=== PATIENT | male | born 1960 | race Caucasian/White ===

== ENCOUNTER 2017-11-22 17:46 | Emergency (ER) | payer OTHER ==
[~2017-11-22] VITALS: Ht 182.9 cm; Wt 118.8 kg
[2017-11-22] MEDS ORDERED: PROAIR HFA8.5 GM INH (19:29)
[2017-11-22] MEDS ORDERED: MEDROLDOSEPACK PO (19:29)
[2017-11-22 19:45] VITALS: BP 141/82
--- NOTE | 2017-11-23 14:47 | EKG ---
[place] [address] ELECTROCARDIOGRAM REPORT Name: OSMARJL Albertina Room: [facility]#: [id number] Admission: 11/22/17 Attend Phys: Discharge: 11/22/17 Date of : 56 Report #: [id number] THIS REPORT FOR: //name// [facility] ED Test Date: 2017-11-22 Test Time: 18:39:43 Pat Name: JL PRASAD Department: Room: Gender: M Study Assistant: Jas ANNE : 1960 Requested By: Amanda Bryant Order Number: [id number] MD: Barber Valentine Measurements Intervals [place] Rate: 80 P: 14 [place]: 183 QRS: -12 QRSD: 101 T: 15 QT: 383 QTc: 442 Interpretive Statements Sinus rhythm Baseline wander in lead(s) V5,V6 No previous ECG available for comparison Electronically Signed On 11-23-2017 14:47:41 CDT by Barber Valentine [email or web address] <ELECTRONICALLY SIGNED> By: Barber Valentine MD, [facility] 11/23/17 1447 [id number] Barber Valentine MD, FAC /EPI
== END 2017-11-22 19:51 | disposition home or self-care (01) ==
LOC: M.ERS 17:46
DX: R09.1 Pleurisy (principal); J40 Bronchitis, not specified as acute or chronic; Z90.49 Acquired absence of other specified parts of digestive tract

== ENCOUNTER 2018-07-14 04:31 | Emergency (ER) | payer OTHER ==
[~2018-07-14] VITALS: Ht 185.4 cm; Wt 113.4 kg
[~2018-07-14 04:31] MED LIST: MEDROLDOSEPACK PO; PROAIR HFA8.5 GM INH
[2018-07-14 05:41] LABS: INFLUENZA B ANTIGEN None Detected (None Detect)
[2018-07-14] MEDS ORDERED: PROAIR HFA8.5 GM INH (05:45)
[2018-07-14] MEDS ORDERED: OSELB75 PO (05:45)
[2018-07-14] MEDS ORDERED: PREDNISONE50 MG PO (05:45)
[2018-07-14] MEDS ORDERED: TUSSIONEX PENN115 ML PO (05:48)
[2018-07-14 06:05] VITALS: BP 169/76
== END 2018-07-14 06:05 | disposition home or self-care (01) ==
LOC: M.ERS 04:31
PROVIDERS: Emergency Medicine
DX: J11.1 Influenza due to unidentified influenza virus with other respiratory manifestations (principal); J40 Bronchitis, not specified as acute or chronic; Z90.49 Acquired absence of other specified parts of digestive tract

== ENCOUNTER 2019-01-27 17:36 | Emergency (ER) | payer OTHER ==
[~2019-01-27] VITALS: Ht 182.9 cm; Wt 115.7 kg
[~2019-01-27 17:36] MED LIST changes: +OSELB75 PO; +PREDNISONE50 MG PO; +TUSSIONEX PENN115 ML PO
[2019-01-27 18:08] LABS: URINE BILIRUBIN NEGATIVE (Negative); URINE BLOOD TRACE (Negative); URINE CLARITY CLEAR; URINE COLOR YELLOW; URINE GLUCOSE-RANDOM 2+ (Negative); URINE KETONES TRACE (Negative); URINE LEUKOCYTES-REFLEX NEGATIVE (Negative); URINE NITRITE-REFLEX NEGATIVE (Negative); URINE PROTEIN 1+ (Negative); URINE SPECIFIC GRAVITY >= 1.030 (1.005-1.030); URINE UROBILINOGEN 0.2 E.U./dl (0.2-1.0)
[2019-01-27 19:03] LABS: ABSOLUTE BASOPHILS 0.1 thou/uL (0.0-0.2); ABSOLUTE EOSINOPHILS 0.3 thou/uL (0.0-0.7); ABSOLUTE LYMPHOCYTES 1.3 thou/uL (0.8-5.3); ABSOLUTE MONOCYTES 0.6 thou/uL (0.0-1.2); ABSOLUTE NEUTROPHILS 6.7 thou/uL (1.6-8.1); BASOPHILS 0.9 %; EOSINOPHILS 2.9 %; HEMATOCRIT 46.4 % (42.0-52.0); MCH 29.7 pg (26.0-34.0); MCHC 34.4 g/dL (28.0-37.0); MCV 86.4 fL (80.0-100.0); MONOCYTES 6.4 %; MPV 8.1 fl. (7.2-11.1); NUCLEATED RBCS 0 /100WBC; PLATELET COUNT* 276 thou/uL (150-400); POLYS 74.8 %; RBC 5.37 mil/uL (4.50-6.00); RDW-CV 13.4 % (10.5-14.5); WBC 8.9 thou/uL (4.0-11.0)
[2019-01-27 19:10] LABS: CALCIUM 8.5 mg/dL (8.5-10.1); CREATININE 0.8 mg/dL (0.6-1.3); POTASSIUM 3.4 mmol/L (3.5-5.1)
[2019-01-27] MEDS ORDERED: METFORMIN HCL500 MG PO (19:13)
[2019-01-27 19:15] LABS: ALBUMIN 3.3 g/dL (3.4-5.0); TOTAL BILIRUBIN 0.7 mg/dL (<0.1-1.0); TOTAL PROTEIN 7.1 g/dL (6.4-8.2)
[2019-01-27 19:30] VITALS: BP 171/106
== END 2019-01-27 19:30 | disposition home or self-care (01) ==
LOC: M.ERS 17:36
PROVIDERS: Nurse Practitioner Family
DX: R35.0 Frequency of micturition (principal); R73.9 Hyperglycemia, unspecified; I10 Essential (primary) hypertension; Z90.49 Acquired absence of other specified parts of digestive tract

== ENCOUNTER 2019-07-21 05:44 | Emergency (ER) | payer OTHER ==
[~2019-07-21] VITALS: Ht 182.9 cm; Wt 111.1 kg
[~2019-07-21 05:44] MED LIST changes: +METFORMIN HCL500 MG PO
[2019-07-21 06:36] LABS: INFLUENZA A ANTIGEN Negative (Negative); INFLUENZA B ANTIGEN Negative (Negative)
[2019-07-21] MEDS ORDERED: PROAIR HFA8.5 GM INH (06:47)
[2019-07-21 07:02] VITALS: BP 166/68
== END 2019-07-21 07:03 | disposition home or self-care (01) ==
LOC: M.ERS 05:44
PROVIDERS: Emergency Medicine
DX: M25.511 Pain in right shoulder (principal); R05 Cough; I10 Essential (primary) hypertension; Z90.49 Acquired absence of other specified parts of digestive tract